=== PATIENT | female | born 1960 | race Caucasian/White ===

== ENCOUNTER → 2017-10-29 | Outpatient (CLI) | payer BC ==
--- NOTE | 2017-10-29 12:55 | US ---
EXAMINATION TYPE: US venous doppler duplex LE LT DATE OF EXAM: 10/29/2017 12:41 PM COMPARISON: NONE CLINICAL HISTORY: I82.409 Deep Vein Thrombosis. left heel surgery, left leg pain and swelling, no pre vious dvt SIDE PERFORMED: left TECHNIQUE: The lower extremity deep venous system is examined utilizing real time linear array sonog ana maria with graded compression, doppler sonography and color-flow sonography. VESSELS IMAGED: External Iliac Vein (EIV) Common Femoral Vein Deep Femoral Vein Greater Saphenous Vein * Femoral Vein Popliteal Vein Small Saphenous Vein * Proximal Calf Veins (* superficial vessels) Results called to the office at the time of the exam. Left Leg: Negative for DVT Grayscale, color doppler, spectral doppler imaging performed of the deep veins of the left lower extr emity. There is normal flow, compressibility, vascular waveforms. IMPRESSION: No sonographic evidence of deep venous arthrosis within the left lower extremity
== END | disposition home or self-care (01) ==
LOC: RADUSWWP 12:07
PROVIDERS: ATTEND Podiatrist Foot & Ankle Surgery
DX: I82.402 Acute embolism and thrombosis of unspecified deep veins of left lower extremity (principal)

== ENCOUNTER → 2018-07-21 | Outpatient (CLI) | payer BC ==
--- NOTE | 2018-07-21 21:18 | CONS ---
CONSULTATION DATE OF SERVICE: 07/21/2018 58-year-old lady who [facility] for obstructive sleep apnea- hypopnea syndrome. HISTORY OF PRESENT ILLNESS/SLEEP WAKE EVALUATION: The patient has been diagnosed with obstructive sleep apnea about 20 years ago. Since that time, she was started on treatment with CPAP. Her CPAP was broken and about 10 years ago she started to use CPAP equipment of her . She continued to use this machine for now every night. I checked that CPAP unit. The pressure is 12 cm of water. Patient demonstrated 100% compliance with treatment. She is using it every night. Average 8.2 hours. Significant leak from the mask 34 L/minute. Patient increased her weight around 60 pounds since the sleep study done about 20 years ago. SLEEP SCHEDULE: Usual sleep schedule from 11 p.m. to 7 a.m. on weekdays and from 11:30 p.m. to 11:00 am on the weekends. FALLING ASLEEP: No problems with falling asleep although she has a TV set in bedroom. DURING SLEEP: She wakes up from sleep 2 times while she is using her CPAP. DURING THE DAY/SLEEP WAKE EVALUATION: She wakes up tired and may feel sleepy during the day. [place] Sleepiness Scale significantly increased to 12. PAST MEDICAL HISTORY: Positive for diabetes mellitus. PAST SURGICAL HISTORY: Bladder suspension x2, , surgery for Achilles tendon problems. MEDICATIONS: Metformin. SOCIAL HISTORY: Negative for smoking. Alcohol consumption rarely. FAMILY HISTORY: Hypertension, stroke, sleep apnea, snoring, diabetes. REVIEW OF SYSTEMS: Awakenings from sleep while on CPAP. Sometimes sleepiness during the day. PHYSICAL EXAM: lady without distress. BP 128/78, HR 80, RR 16, height 5 feet 5 inches, weight 308 pounds, body mass index 51.2, temperature 98.0, oxygen saturation at room air 99%. Oropharynx extremely low position of soft palate. Mallampati 4. Wide neck, 17-1/2 inches in circumference. ABDOMEN: Obese. Neck Supple, no JVD. Thyroid is not palpable. LUNGS Clear to percussion and to auscultation. Good air exchange. No wheezing or rhonchi. HEART S1, S2 regular. No murmurs, gallops, or rubs. ABDOMEN: Obese. Soft and nontender. Bowel sounds are present. No organomegaly appreciated. EXTREMITIES No clubbing or cyanosis. BOND CLERK Awake, alert, and oriented X3. Cranial nerves 2 to 7 intact. There is no fasciculation or atrophy. noted. No focal deficits observed. IMPRESSION: 1. Obstructive sleep apnea-hypopnea syndrome since 20 years ago. The patient is using her CPAP equipment of her relative. She wakes up on CPAP and feels sleepy during the day. 2. Obesity, body mass index 51.2. Patient increased her weight around 60 pounds since previous sleep study done 20 years ago. 3. Diabetes mellitus. 4. Status post . 5. Status post bladder suspension. 6. Status post surgery for Achilles tendon problems. PLAN: 1. Split night to confirm obstructive sleep apnea-hypopnea syndrome and to re-evaluate effective CPAP pressure at the present time after patient increased her weight. Also to check the best options for the fitting with mask. 2. Losing weight. 3. Sleep hygiene with regular time in bed for at least 8 hours. 4. No driving if feeling sleepiness. Thank you very much for allowing me to participate in management of your patient. Sincerely, Gabe Garcia MD, PhD, FAASM Diplomat of [place] [employer] [place] [employer] of [facility] MMODL / IJN: [id number] /
== END ==
LOC: SLEEP 16:34
PROVIDERS: ATTEND Internal Medicine
DX: G47.33 Obstructive sleep apnea (adult) (pediatric) (principal); E66.9 Obesity, unspecified; E11.9 Type 2 diabetes mellitus without complications; Z68.43 Body mass index [BMI] 50.0-59.9, adult; Z98.890 Other specified postprocedural states; Z99.89 Dependence on other enabling machines and devices; Z79.84 Long term (current) use of oral hypoglycemic drugs
CPT/HCPCS: 99211

== ENCOUNTER → 2023-02-04 | Outpatient (CLI) | payer BC ==
--- NOTE | 2023-02-05 10:01 | MM ---
Reason for Exam: Screening (asymptomatic). Last mammogram was performed 4 year(s) and 7 month(s) ago. Patient History: Menarche at age 12. First Full-Term at age 19. Postmenopausal. Core Biopsy on the Right side. 12/10/2000, Benign Stereotactic Core Biopsy on the right side. Maternal cousin had breast cancer, age 49. Maternal cousin had breast cancer, age 49. Risk Values: Daphne 5 year model risk: 1.7%. NCI Lifetime model risk: 7.5%. Prior Study Comparison: 10/09/2009 Bilateral Screening Mammogram, [facility]. 10/19/2014 Bilateral Screening Mammogram, [facility]. 07/01/2018 Bilateral Screening Mammogram, [facility]. Tissue Density: There are scattered fibroglandular densities. Findings: Analyzed By CAD. Unchanged focal asymmetry with clip related to prior biopsy on the right. There is no suspicious group of microcalcifications or new suspicious mass in either breast. Overall Assessment: Benign, BI-RAD 2 Management: Screening Mammogram of both breasts in 1 year. . Patient should continue monthly self-breast exams. A clinical breast exam by your physician is recommended on an annual basis. This exam should not preclude additional follow-up of suspicious palpable abnormalities. Note on Daphne scores and lifetime risk: 1. A Daphne score greater than 3% is considered moderate risk. If this is the case, consider specialist referral to assess eligibility for a risk reducing agent. 2. If overall lifetime risk for the development of breast cancer is 20% or higher, the patient may qualify for future screening with alternating mammogram and breast MRI. Electronically signed and approved by: Mateo Varghese M.D. Radiologist
== END | disposition home or self-care (01) ==
LOC: RADMAMWWP 13:46
PROVIDERS: ATTEND Family Medicine
DX: Z12.31 Encounter for screening mammogram for malignant neoplasm of breast (principal); Z78.0 Asymptomatic menopausal state; Z80.3 Family history of malignant neoplasm of breast
CPT/HCPCS: 77063; 77067

== ENCOUNTER → 2023-02-11 | Outpatient (CLI) | payer BC ==
--- NOTE | 2023-02-11 10:36 | BD ---
EXAMINATION TYPE: Axial Bone Density DATE OF EXAM: 02/11/2023 CLINICAL HISTORY: 62 years old Female. ICD-10 CODE: Z78.0 ASYMPTOMATIC EFE Height: 65in Weight: 294lb FRAX RISK QUESTIONS: History of Fracture in Adulthood: yes Secondary Osteoporosis: RISK FACTORS HISTORY OF: History of Wrist Fracture: yes, bilateral When: 2017 Active: yes Postmenopausal woman: yes MEDICATIONS: Additional Medications: metformin, cholesterol med, vitamin d Additional History: diabetic EXAM MEASUREMENTS: Bone mineral densitometry was performed using the [employer] System. Bone mineral density as measured about the Lumbar spine is: ----- L1-L4(G/cm2): 1.051 T Score Values are as follows: ----- L1: -1.0 ----- L2: -0.5 ----- L3: -1.6 ----- L4: -1.3 ----- L1-L4: -1.1 Z Score Values are as follows: ----- L1: -0.8 ----- L2: -0.2 ----- L3: -1.4 ----- L4: -1.1 ----- L1-L4: -0.8 First dexa at [facility] Bone mineral density about the R hip (g/cm2): 0.930 Bone mineral density about the L hip (g/cm2): 0.929 T Score values are as follows: -----R Neck: -1.1 -----L Neck: -1.0 -----R Total: -0.6 -----L Total: -0.6 Z Score values are as follows: -----R Neck: -0.5 -----L Neck: -0.4 -----R Total: -0.4 -----L Total: -0.4 FRAX%s: The graph provided illustrates a 10.8% chance for a major osteoporotic fx and a 0.7% chance f or the hips probability for fx in 10 years time. IMPRESSION: Osteopenia (T Score between -2.5 and -1). There is slightly increased risk of fracture and the patient may be considered for treatment. Re-Screen 2-5 years. NOTE: T-SCORE=SD OF THE YOUNG ADULT MEAN.
== END | disposition home or self-care (01) ==
LOC: RADBDWWP 09:57
PROVIDERS: ATTEND Family Medicine
DX: M85.89 Other specified disorders of bone density and structure, multiple sites (principal); E11.9 Type 2 diabetes mellitus without complications; Z78.0 Asymptomatic menopausal state
CPT/HCPCS: 77080

== ENCOUNTER → 2023-11-30 | Outpatient (CLI) | payer BC ==
[2023-11-30 10:19] LABS: Basophils % (A) 1.1 %; Eosinophils # (A) 0.22 X 10*3/uL (0.04-0.35); Eosinophils % (A) 2.4 %; HCT 41.6 % (37.2-46.3); HGB 12.8 g/dL (12.0-15.0); Lymphocytes # (A) 2.72 X 10*3/uL (0.90-5.00); Lymphocytes % (A) 29.8 %; MCH 28.4 pg (27.0-32.0); MCHC 30.8 g/dL (32.0-37.0); MCV 92.4 FL (80.0-97.0); Mean Platelet Volume 10.4 FL (9.5-12.2); Monocytes # (A) 0.66 X 10*3/uL (0.20-1.00); Monocytes % (A) 7.2 %; NRBC Per 100 WBC 0 X 10*3/uL (0.00-0.01); Neutrophils # (A) 5.39 X 10*3/uL (1.80-7.70); Neutrophils % (A) 59.2 %; Platelet Count 413 X 10*3/uL (140-440); RDW 13.9 % (11.5-14.5); WBC 9.12 X 10*3/uL (4.50-10.00)
[2023-11-30 12:58] LABS: Anion Gap 19.6 mmol/L (4.00-12.00); Carbon Dioxide 16.4 mmol/L (21.6-31.8); Potassium 4.6 mmol/L (3.5-5.5)
== END | disposition home or self-care (01) ==
LOC: LABPAT 07:16
PROVIDERS: ATTEND Orthopaedic Surgery
DX: Z01.818 Encounter for other preprocedural examination (principal); M23.92 Unspecified internal derangement of left knee; R94.31 Abnormal electrocardiogram [ECG] [EKG]
CPT/HCPCS: 36415; 80051; 85025; 93005

== ENCOUNTER 2023-12-09 10:37 | Day surgery (SDC) | payer BC ==
--- NOTE | 2023-12-08 22:55 | HP ---
HISTORY AND PHYSICAL DATE OF SCHEDULED SURGERY: 12/09/2023. HISTORY OF PRESENT ILLNESS: Kisha Castellanos is a 63-year-old patient seen with progressive left knee pain. We discussed options regarding treatment. She elected to proceed with left knee arthroscopy. Consent was obtained. PAST MEDICAL HISTORY: Lpo-ofevjpn-fnnmuflny diabetes. PAST SURGICAL HISTORY: History of section, bladder suspension. DAILY MEDICATIONS: 1. Ibuprofen. 2. Metformin. ALLERGIES: Demerol. SOCIAL HISTORY: She denies tobacco use. PHYSICAL EVALUATION OF THE LEFT KNEE: Her range of motion is 0 to 120 degrees, mild effusion. Tenderness to medial joint line. Positive medial Suzi's. Ligaments stable. Hip rotation without pain. Distal neurovascular exam is intact. IMAGING: Left knee radiographs revealed osteoarthritic changes. MRI left knee revealed a complex meniscal tear. IMPRESSION: 1. Internal derangement left knee with medial meniscal tear. 2. Wlu-dmmaeei-alwagxezf diabetes. PLAN: Left knee arthroscopy with partial medial meniscectomy and debridement. MMODL / IJN: [id number] /
[~2023-12-09 10:37] MED LIST: HYDROmorphone 0.5 MG/0.5 ML SYRINGE IVP PRN; LIDOCAINE 1% (10MG/ML) FOR IV START INTRADERMA PRN; fentaNYL (PF) 50 MCG/ML 2 ML AMP IVP PRN
[2023-12-09] MEDS: LACTATED RINGERS 1,000 ML IV SCH (11:14)
[2023-12-09 11:17] LABS: Glucose,Whole Blood 121 mg/dL (70-110)
[2023-12-09] MEDS: DEXAMETHASONE SOD PHOSPHATE 4 MG/ML 1 ML VIAL IV ONE (11:20)
[2023-12-09] MEDS: ONDANSETRON 4 MG/2 ML VIAL IVP ONE (11:20)
[2023-12-09] MEDS: MIDAZOLAM 2 MG/2 ML VIAL IV PRN (11:21)
[2023-12-09] MEDS: IV FLUID CONTINUATION 1,000 ML IV ONE ×3 (11:25→15:16)
[2023-12-09] MEDS ORDERED: HYDROmorphone (PF) 1 MG/ML ONE (12:02)
[2023-12-09] MEDS ORDERED: fentaNYL (PF) 50 MCG/ML 2 ML AMP ONE (12:02)
[2023-12-09] MEDS ORDERED: KETOROLAC 15 MG/ML 1 ML VIAL ONE (12:02)
[2023-12-09] MEDS ORDERED: SUCCINYLCHOLINE CHLORIDE 200 MG/10 ML VIAL IV ONE (12:02)
[2023-12-09] MEDS ORDERED: PROPOFOL 10 MG/ML 20 ML VIAL IV ONE (12:02)
[2023-12-09] MEDS ORDERED: LIDOCAINE 1% INJ 10MG/ML (20 ML MDV) ONE (12:02)
[2023-12-09] MEDS: ceFAZolin 3 GM in SODIUM CHLORIDE 0.9% 100 ML IVPB PRN (12:07)
[2023-12-09] MEDS: BUPIVACAINE (PF) 0.25% 30 ML VIAL SQ ONE ×2 (12:28→12:40)
--- NOTE | 2023-12-09 12:56 | P.OP ---
Date of Procedure: 12/09/23 Preoperative Diagnosis: Internal derangement left knee Postoperative Diagnosis: 1. Tear medial and lateral meniscus left knee 2. Grade IV chondromalacia medial femoral condyle left knee 3. Reactive synovitis medial, lateral and suprapatellar compartments left knee 4. 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 Arthroscopic partial medial and lateral meniscectomy left knee 2. Arthroscopic microfracture medial femoral condyle left knee 3. Arthroscopic partial synovectomy medial, lateral and suprapatellar compartments left knee 4. Arthroscopic chondroplasty patella left knee Anesthesia: DAYO, local Surgeon: Greyson Mccord Estimated Blood Loss (ml): 6 Pathology: none sent Condition: stable Disposition: PACU Indications for Procedure: 63-year-old patient seen with progressive left knee pain. After having treatment options discussed, she elected to proceed with arthroscopy. Operative Findings: See description of procedure Description of Procedure: Patient was taken to the operative suite. Patient underwent a general anesthetic by the department of anesthesia. Patient was given preoperative antibiotics. The left lower extremity was placed in a well-padded arthroscopic leg gomez. The left leg was prepped and draped in the normal sterile orthopedic fashion. A lateral parapatellar and suprapatellar incision was made. Trochars were inserted. Arthroscopy was initiated. Suprapatellar pouch revealed diffuse thick reactive synovitis. The patellofemoral joint appeared to articular congruently. There was grade III chondromalacia of the patella and grade III/IV chondromalacia of the femoral sulcus.. The scope was guided into the medial gutter. No loose bodies or plica were identified. The scope was then guided into the medial compartment. A medial parapatellar incision was made. Trocar inserted followed by probe. There was a complex tear involving the posterior horn and mid body medial meniscus. There were grade III/IV chondromalacia changes of the medial femoral condyle with some osteochondral flap tears present. There was thick reactive synovitis anteriorly. I performed a partial medial meniscectomy getting down to stable meniscal tissue. I performed a partial synovectomy decompressing the thick reactive synovitis. I performed a chondroplasty of the medial femoral condyle getting down to stable osteochondral tissue. I performed a partial synovectomy decompressing the thick reactive synovitis. I did note an area of exposed bone medial femoral condyle measuring just about a centimeter. I introduced a microfracture awl and I performed a microfracture to the area of exposed bone penetrating the bone with resultant bleeding at the microfracture site. The residual meniscus was probed and was found to be stable. The residual osteochondral surface of the femoral condyle was stable. There was good decompression of the synovitis. Scope and probe were then guided into the intercondylar notch. Cruciates were identified, probed and found to be stable. The scope and probe were then guided into lateral compartment. There was a radial tear mid body lateral meniscus. There were grade I chondromalacia changes of the lateral compartment without tears. There was some thick reactive synovitis anteriorly. I performed a partial lateral meniscectomy getting down to stable meniscal tissue. I performed a partial synovectomy decompressing the thick reactive synovitis. The residual meniscus was stable. There was good decompression of the synovitis. The scope was in guided back into the suprapatellar compartment. I introduced a motorized shaver into the suprasellar compartment. I debrided some piecemeal fragments of meniscus I encountered. I performed a chondroplasty of the patella getting down to stable osteochondral tissue. I performed a partial synovectomy. The shaver was removed. The residual osteochondral surface of the patella was stable. There was good decompression of the synovitis. I now took 1 more look around the entire knee, no residual debris. Instruments were now removed from the joint. The joint was infiltrated with .25% Marcaine. Steri-Strips were applied to the portal sites. Sterile dressings were applied. The patient was placed into a NORA hose. No tourniquet was utilized. The patient was awakened, transferred to a bed and taken to recovery stable satisfactory condition.
[2023-12-09 13:00] VITALS: TEMP 96.9
[2023-12-09 13:18] LABS: Glucose,Whole Blood 132 mg/dL (70-110)
[2023-12-09 13:46] VITALS: PULSE 100; RESP 20
[2023-12-09] MEDS: droPERidol 5 MG/2 ML VIAL IVP ONE (14:30)
[2023-12-09 14:43] VITALS: BP 121/78
== END 2023-12-09 15:21 | disposition home or self-care (01) ==
LOC: OR 10:37
PROVIDERS: ATTEND Orthopaedic Surgery
DX: S83.282A Other tear of lateral meniscus, current injury, left knee, initial encounter (principal); S83.242A Other tear of medial meniscus, current injury, left knee, initial encounter; M65.162 Other infective (teno)synovitis, left knee; M22.42 Chondromalacia patellae, left knee; E11.9 Type 2 diabetes mellitus without complications; G47.33 Obstructive sleep apnea (adult) (pediatric); E66.01 Morbid (severe) obesity due to excess calories; Z79.84 Long term (current) use of oral hypoglycemic drugs; Z88.5 Allergy status to narcotic agent; Z79.1 Long term (current) use of non-steroidal anti-inflammatories (NSAID); Z68.42 Body mass index [BMI] 45.0-49.9, adult; X58.XXXA Exposure to other specified factors, initial encounter
CPT/HCPCS: 29879; 29880; J2250; J0330; J1100; J0690; J2405; J2001; J3010; J1170; J1885; J2704; J1790; J0665